=== PATIENT | male | born 1980 | race Caucasian/White ===

== ENCOUNTER 2023-03-29 12:52 | Emergency (ER) | payer OTHER, SELFPAY ==
[2023-03-29 12:57] VITALS: BP 142/88; PULSE 78; RESP 20; TEMP 36.4; O2SAT 99
[2023-03-29 14:20] VITALS: BP 167/108; PULSE 87; RESP 16; O2SAT 98
--- NOTE | 2023-03-29 14:50 | ED.GENADUL_ITS ---
Discharge Plan Disposition Patient Disposition: Home Condition: Stable Discharge Details Clinical Impression: Cellulitis of right hand, Dyshidrotic eczema Primary Care Provider: Siddharth Stuart ED Provider: Deysi Gaffney Home Meds and New Rx's Prescriptions: New cephalexin 500 mg capsule 500 mg PO BID 7 Days Qty: 14 0RF Rx Instructions: Take 1 tablet twice daily with as directed x7 days No Action nicotine 21 mg/24 hr patch 24 hour 1 patch transdermal DAILY Qty: 14 0RF fluocinonide 0.05 % cream 1 applic TP BID Qty: 30 6RF Rx Instructions: Apply to affected plaques triamcinolone acetonide 0.1 % ointment 1 applic topical DAILY PRN (Reason: rash) Qty: 80 1RF Discharge Instructions Instructions: Cellulitis (ED) Additional Instructions: Please take the antibiotic with yogurt or probiotic as directed. Follow up with primary care provider and/or paper sorter in 3-5 days. Return to ED sooner if any worsening or concerns. Increase oral fluids. Please do not use topical steroids longer than 7-10 days unless directed to do so by your primary care provider or paper sorter. Return to the ER for any fever chills, worsening redness that extends up past your wrist if you are unable to move your wrist or any other concerns. Referrals: Siddharth Stuart DO [Primary Care Provider] - 5 days Discharge Data Discharge Date/Time-TO BE ENTERED AT DEPARTURE: 03/29/23 15:13 Medical Decision Making 43-year-old male presents to the ER with a chief complaint of possible right hand cellulitis. He reports he does have some pain in his right hand, increased warmth. And some pain up into his right arm which is associated with lightheadedness. He states this feels the same as his previous cellulitis which was treated with cephalexin approximately a month ago to the other hand. He does have a past medical history of dyshidrotic eczema, hemorrhoids, tobacco abuse disorder, psoriasis and alcohol use disorder. He also takes triamcinolone cream which was prescribed beginning of February, We will give cephalexin since this worked for the last episode. Will refer patient back to paper sorter and PCP if no improvement. Differential diagnosis includes but not limited to eczema flare, reaction from the triamcinolone cream, cellulitis. Right hand is warm and erythemic more so than the left hand. Erythema and warmth extends up through the wrist. This text was generated using [employer] dictation system, please disregard any oddities of phrase or misspellings. HPI General Mode of arrival: ambulatory . Date/Time Provider Initiated Documentation: 03/29/23 13:38 . Limitations to Documentation: no limitations . Information obtained by: patient, RN notes reviewed and old records reviewed . HPI Narrative: 43-year-old male presents to the ER with a chief complaint of possible right hand cellulitis. He reports he does have some pain in his right hand, increased warmth. And some pain up into his right arm which is associated with lightheadedness. He states this feels the same as his previous cellulitis which was treated with cephalexin approximately a month ago to the other hand. He does have a past medical history of dyshidrotic eczema, hemorrhoids, tobacco abuse disorder, psoriasis and alcohol use disorder. He also takes triamcinolone cream which was prescribed beginning of February, Related Data Home Medications Medication Instructions Recorded Confirmed fluocinonide 0.05 % topical cream 1 applic topical BID #30 grams 01/16/23 03/29/23 nicotine 21 mg/24 hr daily 1 patch transdermal DAILY #14 ea 01/16/23 03/29/23 transdermal patch triamcinolone acetonide 0.1 % 1 applic topical DAILY PRN rash 02/12/23 03/29/23 topical ointment #80 grams cephalexin 500 mg capsule 500 mg PO BID Cellulitis Right 03/29/23 hand 7 days #14 caps Previous Rx's Medication Instructions Recorded fluocinonide 0.05 % topical cream 1 applic topical BID #30 grams 01/16/23 nicotine 21 mg/24 hr daily 1 patch transdermal DAILY #14 ea 01/16/23 transdermal patch triamcinolone acetonide 0.1 % 1 applic topical DAILY PRN rash 02/12/23 topical ointment #80 grams cephalexin 500 mg capsule 500 mg PO BID Cellulitis Right 03/29/23 hand 7 days #14 caps Allergies Allergy/AdvReac Type Severity Reaction Status Date / Time No Known Drug Allergies Allergy Verified 02/12/23 14:41 General Stated Complaint: Cellulitis JOHANA: 3 PFSH All Active Problems (Updated 03/29/23 @ 14:56 by Deysi Gaffney NP) Cellulitis of right hand (Acute) Dyshidrotic eczema (Acute) Tinnitus of both ears (Acute) Hemorrhoid (Acute) Tobacco abuse disorder (Acute 04/02/15) 1/2 PPD Psoriasis (Acute) eczema, dyshidrosis, psoriasis Alcohol use disorder (Acute 07/06/15) DUI 2003; >2 beer/wine daily most days Medical History Psoriasis Family History Mother No problems noted. Father Diabetes Liver cirrhosis Brother No problems noted. Brother No problems noted. Grandmother Breast cancer maternal Daughter No problems noted. Grandfather Dementia maternal Social History (Updated 01/16/23 @ 10:22 by Laverne Mendoza) Smoking/Tobacco Use Status: Current every day Tobacco: How many years used: 25 Quit status: considering quitting Smoking risk assessment performed?: Yes Alcohol Intake: current Alcohol Intake frequency: a few times a week Alcohol type: beer Drug use: Never Substance use type: does not use Adopted: No Caregiver/Support person: No Foster care: No Household members: significant other and children Housing: house Number of Children: 2 number of grandchildren: 0 Communication Needs: None Education Level: high school Do you need help understanding health information?: Never current occupation: lead maintenance technician @ [employer] Pets and animals: No Sexually active: Yes Do you think of yourself as: straight/heterosexual Current gender identity: male What is your relationship status?: living with partner How often do you talk on the phone with friends or family?: once per week How often do you get together with friends or relatives?: once per week Do you belong to any clubs or organized social groups?: no Panel score (0-1 are the most socially isolated patients): 1 What type of physical activity do you participate in: none Lary/Sikh: None Special lary needs: No Seatbelt use: always Helmet use: Yes Drive intox or ride w/intox driver lifter of sanitation truck: No Course Vital Signs Vital signs: Vital Signs Temperature 36.4 C 03/29/23 12:57 Pulse 78 03/29/23 12:57 Respiratory Rate 20 03/29/23 12:57 Blood Pressure 142/88 H 03/29/23 12:57 Pulse Oximetry 99 03/29/23 12:57 Temperature 36.4 C 03/29/23 12:57 Temperature Source Oral 03/29/23 12:57 Pulse 87 03/29/23 14:20 Respiratory Rate 16 03/29/23 14:20 Respiratory Effort Normal, Non-Labored 03/29/23 13:01 Blood Pressure 167/108 H 03/29/23 14:20 Blood Pressure Position Sitting 03/29/23 12:57 Pulse Oximetry 98 03/29/23 14:20 Oxygen Delivery Method Room Air 03/29/23 14:20 Oxygen Flow Rate 0 03/29/23 14:20
[2023-03-29] MEDS: Cephalexin 500 MG CAP, 2 CAPS/BTL PO (14:58)
[2023-03-29] MEDS: Cephalexin 500 MG CAP PO (14:58)
[2023-03-29 15:06] VITALS: BP 158/92; PULSE 82; RESP 16; O2SAT 95
== END 2023-03-29 15:13 | disposition home or self-care (01) ==
PROVIDERS: Emergency Provider Registered Nurse Emergency; PCP Family Medicine
DX: L03.113 Cellulitis of right upper limb (principal); L30.1 Dyshidrosis [pompholyx]; F17.210 Nicotine dependence, cigarettes, uncomplicated
CPT/HCPCS: 99283

== ENCOUNTER 2023-04-10 13:13 | Outpatient (CLI) | payer OTHER, SELFPAY ==
[2023-04-10 16:57] LABS: ESR 1 mm/hr (0-15)
== END 2023-04-10 13:14 ==
LOC: LBO 05-05 13:13
PROVIDERS: PCP Family Medicine; Visit Provider Family Medicine
DX: L03.113 Cellulitis of right upper limb (principal)
CPT/HCPCS: 36415; 85652

== ENCOUNTER 2024-06-13 02:22 | Outpatient (CLI) | payer OTHER, SELFPAY ==
[2024-06-13 12:33] LABS: ALT 63 U/L (16-63); AST 36 U/L (15-37); Albumin 3.8 g/dL (3.4-5.0); Alkaline Phosphatase 119 U/L (46-116); Anion Gap 8.7 mmol/L (3-11); BUN 13 mg/dL (7-18); Bilirubin, Total 0.96 mg/dL (0.2-1.0); CO2 28.3 mmol/L (21.0-32.0); CREATININE 0.9 mg/dL (0.70-1.30); Calcium 9.7 mg/dL (8.5-10.1); Chloride 105 mmol/L (98-107); Cholesterol 209 mg/dL (<200); Estimated GFR 107.33 (mL/min/1.73m2); Glucose 106 mg/dL (74-106); HDL Cholesterol 55 mg/dL (40-60); Potassium 4.3 mmol/L (3.5-5.1); Sodium 142 mmol/L (136-145); Total Protein 7.5 g/dL (6.4-8.2); Triglyceride 433 mg/dL (<150)
[2024-06-13 13:08] LABS: LDL CHOLESTEROL 83 mg/dL (<100)
== END 2024-06-13 02:23 | disposition home or self-care (01) ==
LOC: LBO 02:22
PROVIDERS: PCP Family Medicine; Referring Provider Family Medicine; Visit Provider Family Medicine
DX: E78.5 Hyperlipidemia, unspecified (principal)
CPT/HCPCS: 36415; 80053; 80061; 83721

== ENCOUNTER 2024-10-03 10:06 | Day surgery (SDC) | payer OTHER, SELFPAY ==
--- NOTE | 2024-10-02 18:28 | PDOC.DSDIS_ITS ---
Date of service: 10/03/24 Discharge Plan Disposition Patient Disposition: Home Condition: Good Discharge Details Reason For Visit: screening colonoscopy Attending Provider: Garrett Martinez Primary Care Provider: Siddharth Stuart Home Meds and New Rx's Prescriptions: Continued fluocinonide 0.05 % cream 1 applic TP BID Qty: 30 6RF Rx Instructions: Apply to affected plaques Dupixent Pen 200 mg/1.14 mL pen injector 200 mg subcut Q2W Discontinued bisacodyl [Dulcolax (bisacodyl)] 5 mg tablet,delayed release (DR/EC) 5 mg PO ONCE Qty: 4 0RF Rx Instructions: Take per colonoscopy instructions provided by ordering providers office polyethylene glycol 3350 17 gram/dose powder 17 g PO ONCE Qty: 238 0RF Rx Instructions: Take per colonoscopy instructions provided by ordering providers office Discharge Instructions Instructions: Colon polyps, Diverticulosis Additional Instructions: Anjum, is very nice meeting you today, and I hope you are comfortable through the procedure. Everything went very smoothly. Your prep was excellent negative everything fine. I did find, and removed 2 polyps today. 1 of these was rather large, but I believe it has been completely resected. The other was much smaller. Both of these polyps will be sent off for testing, since polyps to come in different varieties, and that does influence the timing of future colonoscopies. Those results usually take a week or so to get back, but once I have that information, we will be in touch. Incidentally, you have a small dermatofibroma just above your anus as well. These are not at all dangerous. I generally leave these alone as they can be painful to remove. This can certainly be reassessed on future colonoscopies. He also have a little bit of diverticulosis. Diverticula are little weak spots in the muscular layer of the colon wall. This causes the inside lining to pooch or pocket outwards a bit. I find diverticula in most patients that I do colonoscopies on. Most patients never know they are there. They can get infected or inflamed during episodes that are referred to as diverticulitis. Hopefully years never give you any trou ble. I will attach a little bit of information here about colorectal polyps, as well as diverticular disease. If you have any questions at all, please do not hesitate to ask, otherwise we will be in touch once the polyp report is available. 1. If tolerated, consume a soft, low fiber diet for 1-2 days. 2[address] Do not drive, drink alcohol, operate machinery, make critical decisions, or do activities that require coordination or balance for 24 hours. 3. Because air was put into your colon during the procedure, expelling air from your rectum (passing gas or farting) is normal. 4. You may not have a bowel movement for 1-3 days because of the colonoscopy prep. This is normal. 5. Go directly to the emergency room if you notice any of the following: Develop chills (warm to touch), or if you have a thermometer and your temperature is above 101 Difficulty breathing or difficultly swallowing Persistent vomiting Severe abdominal pain, other than gas cramps Severe chest pain Black, tarry stools Any bleeding ? exceeding one tablespoon 6. Call your physician if the site where your intravenous was started becomes red, swollen, painful, and warm to touch. 7. Your physician has reviewed your pre-procedure medications. Please continue to take those medications as previously ordered. You will be given specific information/education regarding any changes to your medications before leaving. Activity:: Activity as Tolerated Diet:: As Tolerated Discharge Orders Discharge Orders: Discharge Order (Routine); Ordered 10/02/24 Ordered By: Garrett Martinez DS: Diagnosis Discharge Diagnosis (1) Encounter for screening colonoscopy: Status: Acute Asessment and Plan: Follow-up on polypectomy results
--- NOTE | 2024-10-02 18:29 | COLE_ITS ---
Date of service: 10/03/24 Time of Service: 12:44 Colonoscopy Report Date of procedure: 10/03/24 Pre-op diagnosis general: screening colonoscopy Post-op diagnosis procedure note: other (Colon polyps, diverticulosis) Procedure: colonoscopy with polypectomy Surgeon: Garrett Martinez Anesthesia Type: General:No Airway Estimated blood loss (mL): 5 Pathology: other (0.5 cm cecal polyp, greater than 1 cm pedunculated polyp at 25 cm) Complications: None Disposition: same day Indications: Anjum is a 44 year old man who needs a screening colonoscopy Prep: Miralax/Dulcolax Procedure Start Time: 12:12 Procedure End Time: 12:29 Retraction Time: 13 Findings: Anal dermatofibroma, sigmoid diverticulosis, 0.25 cm flat cecal polyp, 1.25 cm pedunculated polyp at 25 cm Procedure Description: After the induction of anesthesia, and with the patient in left lateral decubitus position, I began by performing an external anorectal exam.? Perineum and skin were normal, as was the anal verge.? There was no evidence of external hemorrhoids.? Next, I performed a digital rectal exam. This felt normal.? Next, I advanced a colonoscope into the rectal vault.? I performed retroflexion.? There is a dermatofibroma right at the top end of the anal column.? Using insufflation, I then advanced the colonoscope beyond the rectal folds and into the sigmoid colon before advancing towards the cecum.? The quality of the prep was excellent.? The scope was noted to be in the cecum by identification of the ileocecal valve and appendiceal orifice.? There is a 0.25 cm flat polyp in the cecum that was removed with cold forceps polypectomy. There was minimal bleeding. Around 25 cm from the anal verge, really at the top portion of the rectal vault was a 1.25 cm pedunculated polyp. This was removed with a energize snare polypectomy. Resection site appeared complete. There is minimal disruption of the submucosal muscularis. There was no bleeding.?Once the scope was withdrawn to the level of the rectum, great care was taken to examine portions of the rectal folds.? Finally, the scope was withdrawn and the patient was brought to the same-day surgery recovery unit as the anesthetic wore off. ?The findings and instructions were shared with the patient prior to discharge. Swanton Bowel Prep Swanton Bowel Prep Right Colon: 3 Left Colon: 3 Transverse Colon: 3 Total Score: 9
[2024-10-03 10:15] VITALS: BP 153/99; PULSE 76; RESP 16; TEMP 36.5; O2SAT 99
[2024-10-03] MEDS: Lactated Ringers 1,000 ML 80 ML IV (10:34)
--- NOTE | 2024-10-03 11:52 | W.ANESPRE ---
General Info Date of Service Date Performed: 10/03/24 Height: 5 ft 10 in Weight: 94.8 kg Body Mass Index (BMI): 29.9 Surgical Procedure: Operation Date: 10/03/24 11:35 Proposed Procedure Side Surgeon p Magali Martinez MD Meds Allergies and Home Medications Allergies Allergy/AdvReac Type Severity Reaction Status Date / Time No Known Drug Allergies Allergy Other (See Verified 09/30/24 10:20 Comment) Home Medication ?Medication ?Instructions ?Recorded dupilumab 200 mg/1.14 mL 200 mg subcut Q2W 04/10/23 subcutaneous pen injector (ActionX) fluocinonide 0.05 % topical cream 1 applic topical BID #30 grams 06/24/24 Current Visit Medications: Current Medications Generic Name Dose Route Start Last Admin Trade Name Freq PRN Reason Stop Dose Admin Ringer's Solution 1,000 mls @ 80 mls/hr 10/03/24 06:00 10/03/24 10:34 IV 10/30/24 23:59 80 mls/hr INFUSION MYKEL Administration IV Miscellaneous Supplies 1 each 10/03/24 06:00 Iv Access IV 10/30/24 23:59 DIRECTED MYKEL Ondansetron HCl 4 mg 10/02/24 18:29 Ondansetron 4 Mg/2 Ml Vial IVP 11/01/24 18:28 Q4H PRN PRN Nausea / Vomiting Sodium Chloride 0 ml 10/03/24 06:00 Normal Saline Flush 10 Ml Syr IV 10/30/24 23:59 PRN PRN Sodium Chloride 0 ml 10/03/24 06:00 Normal Saline 10 Ml Vial IJ 10/30/24 23:59 DIRECTED PRN Sterile Water 0 ml 10/03/24 06:00 Water,Injection,Sterile 10 Ml Vial IJ 10/30/24 23:59 DIRECTED PRN PFSH Active Problems Active Problems: Problem Status Onset Code Encounter for screening colonoscopy Acute Z12.11 Hyperlipidemia Acute E78.5 Eczema Acute L30.9 Recurrent cellulitis Acute L03.90 Atopic dermatitis, unspecified Acute L20.9 Dyshidrotic eczema Acute L30.1 Tinnitus of both ears Acute H93.13 Hemorrhoid Acute K64.9 Tobacco abuse disorder Acute 04/02/15 Z72.0 Psoriasis Acute L40.9 Alcohol use disorder Acute 10/30/15 Medical History Medical History Psoriasis Surgical History Surgical History Hx of wisdom tooth extraction Tobacco Smoking/Tobacco Use Status: Former Tobacco Use Passive smoking exposure: Yes Second hand exposure: Yes Alcohol Alcohol Intake: current Alcohol intake frequency: a few times a week Alcohol type: beer and wine Counseling provided: provider counseling Substance Use Substance use: Occasionally Substance use type: marijuana Details: Edibles taken 10/02 Vital Signs and Lab Results Vital Signs Most Recent Vital Signs in EMR: Most Recent Vital Signs Temp Pulse Resp BP Pulse Ox 36.5 C 76 16 153/99 H 99 10/03/24 10:15 10/03/24 10:15 10/03/24 10:15 10/03/24 10:15 10/03/24 10:15 Lab Results Blood Type / Crossmatch: No Data to Display Complete Blood Count: No Data to Display Complete Metabolic Panel: No Data to Display Liver Function Panel: No Data to Display Coagulation Panel: No Data to Display Cardiac Panel: No Data to Display Arterial Blood Gas: No Data to Display Venous Blood Gas: No Data to Display Pancreas Panel: No Data to Display Thyroid Panel: No Data to Display Infectious Disease: No Data to Display Blood Cultures: No Data to Display Toxicology Panel: No Data to Display Anesthesia Assessment and Plan Anesthesia History Personal History: No History of Anesthesia Complications Family History: No Family History of Anesthesia Complications Exercise Tolerance Exercise Tolerance: Metabolic Equivalents>4 Pertinent Negatives Pertinent Negatives: No Symptoms of GERD, No Major Cardiovascular Symptoms or Complaints and No Major Pulmonary Symptoms or Complaints Cardiac & Pulmonary Exam Cardiac Exam: Normal S1/S2 Heart Sounds Pulmonary Exam: Clear Bilateral Breath Sounds Implantable Cardiac Device Does patient have a Pacemaker or an ICD?: No Airway Exam Known Difficult Airway: No Mallampati Class: 2 Mouth Opening: Normal (> 3cm) Thyromental Distance: Greater than 3 cm Neck Range of Motion: Full ROM Neck Circumference: Thick Teeth Condition: Normal Dentition ASA Classification ASA Score: ASA 2 Emergency Case?: No NPO Status NPO Status: NPO Clears >2 hours, Solids >8 hours Anesthesia Plan Resuscitation Status: Full Code Anesthesia Technique: General Anesthesia Airway Planned: Natural Airway Monitors Used: Standard Monitors Preoperative Comments:: Patient quit smoking 08/07/24
[2024-10-03 11:55] VITALS: BMI 29.9
--- NOTE | 2024-10-03 12:18 | BOWEL_PTH ---
PATIENT: Kavin Quintana LOC: [facility] U#:[id number] AGE/SX: 44/M ROOM: RE10/03/[address]: Garrett Martinez MD : 1980 BED: DIS: 10/03/2024 SPEC #: [id number] RECD: 10/03/24 12:52 STATUS: YESENIA REQ #: [id number] TOM: 10/03/24 12:[address]: Garrett Martinez DEPT: Surgical Specimen RECD BY: Ariana Farah ENTERED: 10/03/24 12:53 SP TYPE: Bowel OTHR DR: Siddharth Stuart DO Tissues: 1 - BIOPSY BOWEL 2 - BIOPSY BOWEL Procedures: GROSS AND MICRO LEVEL 4 Comments: [id number]
[2024-10-03 12:38] VITALS: BP 99/62; PULSE 76; RESP 16; TEMP 36.5; O2SAT 96
--- NOTE | 2024-10-03 12:41 | W.ANESPOSTOP ---
Postoperative Evaluation Date, Time and Location Date Performed: 10/03/24 Time Performed: 12:37 Patient Location: Day Surgery Unit Vital Signs Most Recent Imported Vital Signs: Most Recent Vital Signs Temp Pulse Resp BP Pulse Ox 36.5 C 76 16 99/62 L 96 10/03/24 12:38 10/03/24 12:38 10/03/24 12:38 10/03/24 12:38 10/03/24 12:38 Pain Score Most Recent Pain Score: Most Recent Pain Score Pain Level 0 10/03/24 12:38 Assessment Mental Status: Awake (Alert & Oriented to Patient Baseline) Airway and Respiratory Function: Patent airway with normal (patient baseline) respiratory exam Cardiovascular Function: Hemodynamically Stable Hydration Status: Adequately Hydrated Nausea & Vomiting: No Nausea or Vomiting Pain: Pt. Denies Any Pain Peripheral Nerve Block: Patient did not receive a nerve block
[2024-10-03 13:00] VITALS: BP 138/85; PULSE 62; RESP 18; TEMP 36.6; O2SAT 100
== END 2024-10-03 13:40 | disposition home or self-care (01) ==
LOC: SUR 10:06
PROVIDERS: PCP Family Medicine; Visit Provider Surgery
PROC: 0DJD8ZZ Inspection of Lower Intestinal Tract, Via Natural or Artificial Opening Endoscopic (ICD-10-PCS; CPT 45378; principal; 2024-10-03 11:30)
DX: Z12.11 Encounter for screening for malignant neoplasm of colon (principal); D37.4 Neoplasm of uncertain behavior of colon; K57.30 Diverticulosis of large intestine without perforation or abscess without bleeding; D12.0 Benign neoplasm of cecum
CPT/HCPCS: 45385; 45380; 88305; J2003; J2704

== ENCOUNTER 2024-12-23 00:46 | Outpatient (CLI) | payer OTHER, SELFPAY ==
[2024-12-23 11:31] LABS: Calculated LDL 95 mg/dL (<100); Cholesterol 178 mg/dL (<200); HDL Cholesterol 54 mg/dL (>or=40); Triglyceride 149 mg/dL (<150)
== END 2024-12-23 00:47 | disposition home or self-care (01) ==
LOC: LBO 00:46
PROVIDERS: PCP Family Medicine; Referring Provider Family Medicine; Visit Provider Family Medicine
DX: E78.5 Hyperlipidemia, unspecified (principal)
CPT/HCPCS: 36415; 80061